=== PATIENT | male | born 1975 | race African-American/Black ===

== ENCOUNTER 2018-05-29 21:04 | Emergency (ER) | payer OTHER ==
[~2018-05-29] VITALS: Ht 175.3 cm; Wt 81.6 kg
--- NOTE | 2018-05-29 21:05 | Emergency Room Report ---
History of Present Illness General Chief Complaint: Pain Source: EMS Present Illness HPI Patient is a 42-year-old male brought in by EMS after increased right lower extremity pain. Patient reports of increased right-sided pain starting this morning. Reports of increased pain with ambulation. He reports having prior history of hidradenitis supra T [place]. He denies taking antibiotics recently. He denies any recent travel. Patient states that he had not had any recent trauma. Patient denies prior history of recent surgery.Patient was brought in by EMS. Allergies: Coded Allergies: No Known Allergies (Unverified , 05/29/18) Patient History Past Medical History: see triage record Reviewed Nursing Documentation: PMH: Agreed; PSxH: Agreed Nursing Documentation-PMH Past Medical History: No Stated History Review of Systems All Other Systems: negative except mentioned in HPI Physical Exam Vital Signs Date Time Temp Pulse Resp B/P (MAP) Pulse Ox O2 Delivery O2 Flow Rate FiO2 05/29/18 20:58 98.4 84 15 130/76 96 Room Air General Appearance: well appearing, no apparent distress, alert, GCS 15 Head: normocephalic, atraumatic ENT: hearing grossly normal, normal voice Neck: full range of motion, supple Respiratory: no respiratory distress, speaking full sentences Musculoskeletal: no calf tenderness Neurologic: alert, oriented x3, responsive Psychiatric: mood/affect normal Skin: other - right lower extremity posterior leg excoriation with cellulitis to posterior calf. Medical Decision Making Diagnostic Impression: Primary Impression: Cellulitis of right leg Additional Impression: Hidradenitis suppurativa ER Course Patient is a 42-year-old male presented after increased right lower extremity pain. Differential diagnosis include was not limited to cellulitis, abscess, allergic reaction, contact dermatitis among others.Because of complexity of patient's case laboratory testing and imaging studies were ordered.Patient was noted to have some erythema to the posterior calf. Patient was noted to have some pain was given Toradol as well as [place] for pain.Patient was noted to have some cellulitic changes. Patient was given IV antibiotics.Right lower extremity ultrasound showed no evidence of deep venous thrombosis. Patient appears to be stable for outpatient antibiotics. Patient was given prescription for antibiotics and pain medications. He is advised to recheck the wound in 2 days. He is advised to keep his leg elevated.Shows no evidence of abscess or necrotizing fasciitis Labs Test 05/29/18 22:20 White Blood Count 10.9 K/UL (4.8-10.8) Red Blood Count 3.94 M/UL (4.70-6.10) Hemoglobin 9.9 G/DL (14.2-18.0) Hematocrit 32.4 % (42.0-52.0) Mean Corpuscular Volume 82 FL (80-99) Mean Corpuscular Hemoglobin 25.3 PG (27.0-31.0) Mean Corpuscular Hemoglobin Concent 30.7 G/DL (32.0-36.0) Red Cell Distribution Width 17.0 % (11.6-14.8) Platelet Count 413 K/UL (150-450) Mean Platelet Volume 7.7 FL (6.5-10.1) Neutrophils (%) (Auto) 69.8 % (45.0-75.0) Lymphocytes (%) (Auto) 20.5 % (20.0-45.0) Monocytes (%) (Auto) 7.6 % (1.0-10.0) Eosinophils (%) (Auto) 1.2 % (0.0-3.0) Basophils (%) (Auto) 0.9 % (0.0-2.0) Prothrombin Time 11.7 SEC (9.30-11.50) Prothromb Time International Ratio 1.1 (0.9-1.1) Activated Partial Thromboplast Time 28 SEC (23-33) Sodium Level 140 MMOL/L (136-145) Potassium Level 3.6 MMOL/L (3.5-5.1) Chloride Level 104 MMOL/L (98-107) Carbon Dioxide Level 26 MMOL/L (21-32) Anion Gap 10 mmol/L (5-15) Blood Urea Nitrogen 12 mg/dL (7-18) Creatinine 1.1 MG/DL (0.55-1.30) Estimat Glomerular Filtration Rate > 60 mL/min (>60) Glucose Level 86 MG/DL (74-106) Calcium Level 9.6 MG/DL (8.5-10.1) Total Bilirubin 0.4 MG/DL (0.2-1.0) Aspartate Amino Transf (AST/SGOT) 35 U/L (15-37) Alanine Aminotransferase (ALT/SGPT) 43 U/L (12-78) Alkaline Phosphatase 175 U/L (46-116) Total Protein 9.9 G/DL (6.4-8.2) Albumin 2.9 G/DL (3.4-5.0) Globulin 7.0 g/dL Albumin/Globulin Ratio 0.4 (1.0-2.7) Last Vital Signs Date Time Temp Pulse Resp B/P (MAP) Pulse Ox O2 Delivery O2 Flow Rate FiO2 05/29/18 20:58 98.4 84 15 130/76 96 Room Air Status: improved Disposition: HOME, SELF-CARE Condition: Stable Scripts Cephalexin* (KEFLEX*) 500 Mg Capsule 500 MG ORAL EVERY 6 HOURS, #40 CAP Prov: Ever Carlson MD 05/30/18 Hydrocodone Bit/Acetaminophen 5-325* (NORCO 5-325*) 1 Each Tablet 1 TAB ORAL Q6H PRN for For Pain, #10 TAB 0 Refills Prov: Ever Carlson MD 05/30/18 Ibuprofen* (MOTRIN*) 600 Mg Tablet 600 MG ORAL Q8H PRN for For Pain, #30 TAB 0 Refills Prov: Ever Carlson MD 05/30/18 Sulfamethoxazole/Trimethoprim (BACTRIM 400-80 MG TABLET*) 1 Each Tablet 1 TAB ORAL TWICE A DAY, #20 TAB Prov: Ever Carlson MD 05/30/18 Ever Carlson MD May 29, 2018 21:05
[2018-05-29 21:11] VITALS: BP 130/76
--- NOTE | 2018-05-29 21:13 | NUR ---
ED Nurse Note: PT came in with [facility] 861. [facility] stated pt has pain on his R knee that raditates down to foot for the past 2 days. no skin issues to report. fall precaution is taken. R leg does appear slightly swollen. pulse and sensation noted on affected extremity. cap refill is less than 3.
[2018-05-29] MEDS ORDERED: Ketorolac 60mg Inj IM ONE (21:15)
[2018-05-29] MEDS ORDERED: Norco 5mg/325mg tab ORAL ONE (21:30)
[2018-05-29 22:46] LABS: BASOPHILS % (AUTO) 0.9 % (0.0-2.0); EOSINOPHILS % (AUTO) 1.2 % (0.0-3.0); HEMATOCRIT 32.4 % (42.0-52.0); HEMOGLOBIN 9.9 G/DL (14.2-18.0); LYMPHOCYTES % (AUTO) 20.5 % (20.0-45.0); MEAN CORPUSCULAR VOLUME 82 FL (80-99); MONOCYTES % (AUTO) 7.6 % (1.0-10.0); NEUTROPHILS % (AUTO) 69.8 % (45.0-75.0); PLATELET COUNT 413 K/UL (150-450); RED BLOOD COUNT 3.94 M/UL (4.70-6.10); WHITE BLOOD COUNT 10.9 K/UL (4.8-10.8)
[2018-05-29 22:58] LABS: INR 1.1 (0.9-1.1)
[2018-05-29 23:05] LABS: ANION GAP 10 mmol/L (5-15); BLOOD UREA NITROGEN 12 mg/dL (7-18); CALCIUM 9.6 MG/DL (8.5-10.1); CARBON DIOXIDE 26 MMOL/L (21-32); CHLORIDE 104 MMOL/L (98-107); CREATININE 1.1 MG/DL (0.55-1.30); POTASSIUM 3.6 MMOL/L (3.5-5.1); SODIUM 140 MMOL/L (136-145)
[2018-05-29 23:10] LABS: ALANINE AMINOTRANSFERASE 43 U/L (12-78); ALBUMIN 2.9 G/DL (3.4-5.0); ALBUMIN/GLOBULIN RATIO 0.4 (1.0-2.7); ALKALINE PHOSPHATASE 175 U/L (46-116); ASPARTATE AMINO TRANSFERASE 35 U/L (15-37); BILIRUBIN,TOTAL 0.4 MG/DL (0.2-1.0)
[2018-05-29] MEDS ORDERED: cefTRIAXone 1 GM in NS 55 ML IVPB ONE (23:30)
[2018-05-30 00:33] VITALS: BP 132/78
[2018-05-30] MEDS ORDERED: BACTRIM 400-801 EACH ORAL (01:00)
[2018-05-30] MEDS ORDERED: NORCO 5-325 TA1 EACH ORAL (01:00)
[2018-05-30] MEDS ORDERED: CEPHALEXIN500 MG ORAL (01:00)
[2018-05-30] MEDS ORDERED: IBUPROFEN600 MG ORAL (01:00)
[2018-05-30 01:08] VITALS: BP 130/79
--- NOTE | 2018-05-30 01:13 | NUR ---
ER DISCHARGE NOTE: Patient is cleared to be discharged per ERMD, pt is aox4, on room air, with stable vital signs. pt was given dc and prescription instructions, pt was able to verbalize understanding, pt id band and iv site removed without complications. pt is able to ambulate with steady gait. pt took all belongings.
--- NOTE | 2018-05-30 13:58 | Diagnostic Imaging Report ---
Indication: right leg pain Comparison: None Findings: Two views of the right tibia and fibula were obtained. No acute fracture, malalignment, or periosteal reaction are identified. Soft tissues edema noted. Impression: Soft tissue swelling
== END 2018-05-30 01:10 | disposition home or self-care (01) ==
LOC: EDBD 21:04 → EMR 21:21
DX: L03.115 Cellulitis of right lower limb (principal); L73.2 Hidradenitis suppurativa
CPT/HCPCS: 36415; 73590; 80053; 85025; 85610; 85730; 93970; J0696